=== PATIENT | male | born 1965 | race Caucasian/White ===

== ENCOUNTER → 2019-03-27 | Outpatient (CLI) | payer OTHER ==
[~2019-03-27] VITALS: Ht 175.3 cm; Wt 84.4 kg
[~2019-03-27] MED LIST: MOBIC15 MG PO; SYNTHROID50 MCG PO; TRAZODONE HCL100 MG PO
[2019-03-27 08:55] VITALS: BP 104/52
--- NOTE | 2019-03-27 09:15 | NUR ---
Pain Clinic Assessment: 1. History of Osteoarthritis: History of Rheumatoid Arthritis: 2. Height: 5 ft. 9 in. 175.3 cm. Weight: 186.0 lb. oz. 84.369 kg. Patient's BMI: 27.5 3. Vital Signs: BP: 104/52 Pulse: 70 Resp: 16 Temp: 02 Sat: 100 ECG Mon: 4. Pain Intensity: 6 5. Fall Risk: Dizziness: N Needs help standing or walking: N Fallen in the last 3 months: N Fall risk comments: 6. Patient on Blood Thinner: None 7. History of Hypertension: N 8. Opioid Therapy greater than 6 weeks: N Opiate Contract Signed: 9. Risk Assessment Tool Provided: LOW 10. Functional Assessment Tool: 11. Recreational Drug Use: Never Drug Type: Tobacco Use: Never Smoker Tobacco Type: Amount or Packs/day: How Many Years: Alcohol Use: No Frequency: Quant:
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
== END ==
LOC: PAIN 06:43
DX: M54.5 Low back pain (principal); Z79.899 Other long term (current) drug therapy

== ENCOUNTER → 2019-04-26 | Outpatient (CLI) | payer OTHER ==
[~2019-04-26] VITALS: Ht 175.3 cm; Wt 85.8 kg
[2019-04-26 13:52] VITALS: BP 120/76
--- NOTE | 2019-04-26 13:53 | NUR ---
Pain Clinic Assessment: 1. History of Osteoarthritis: History of Rheumatoid Arthritis: 2. Height: 5 ft. 9 in. 175.3 cm. Weight: 189.2 lb. oz. 85.821 kg. Patient's BMI: 27.9 3. Vital Signs: BP: 120/76 Pulse: 58 Resp: 16 Temp: 02 Sat: 97 ECG Mon: 4. Pain Intensity: 6 5. Fall Risk: Dizziness: N Needs help standing or walking: N Fallen in the last 3 months: N Fall risk comments: 6. Patient on Blood Thinner: None 7. History of Hypertension: N 8. Opioid Therapy greater than 6 weeks: N Opiate Contract Signed: 9. Risk Assessment Tool Provided: LOW 10. Functional Assessment Tool: 11. Recreational Drug Use: Never Drug Type: Tobacco Use: Never Smoker Tobacco Type: Amount or Packs/day: How Many Years: Alcohol Use: No Frequency: Quant:
== END | disposition home or self-care (01) ==
LOC: PAIN 13:23
DX: M54.16 Radiculopathy, lumbar region (principal); G89.29 Other chronic pain; Z79.899 Other long term (current) drug therapy; Z98.890 Other specified postprocedural states

== ENCOUNTER → 2019-06-07 | Outpatient (CLI) | payer OTHER ==
[~2019-06-07] VITALS: Ht 175.3 cm; Wt 84.1 kg
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
[2019-06-07 11:06] VITALS: BP 103/74
--- NOTE | 2019-06-07 11:40 | NUR ---
Pain Clinic Assessment: 1. History of Osteoarthritis: Not Applicable History of Rheumatoid Arthritis: Not Applicable 2. Height: 5 ft. 9 in. 175.3 cm. Weight: 185.4 lb. oz. 84.097 kg. Patient's BMI: 27.4 3. Vital Signs: BP: 103/74 Pulse: 64 Resp: 14 Temp: 02 Sat: 99 ECG Mon: 4. Pain Intensity: 6-7 5. Fall Risk: Dizziness: N Needs help standing or walking: N Fallen in the last 3 months: N Fall risk comments: 6. Patient on Blood Thinner: None 7. History of Hypertension: N 8. Opioid Therapy greater than 6 weeks: N Opiate Contract Signed: 9. Risk Assessment Tool Provided: LOW 10. Functional Assessment Tool: 11. Recreational Drug Use: Never Drug Type: Tobacco Use: Never Smoker Tobacco Type: Amount or Packs/day: How Many Years: Alcohol Use: No Frequency: Quant:
== END ==
LOC: PAIN 06:51
DX: M54.16 Radiculopathy, lumbar region (principal); M43.22 Fusion of spine, cervical region; D64.9 Anemia, unspecified; E07.9 Disorder of thyroid, unspecified; Z79.899 Other long term (current) drug therapy

== ENCOUNTER → 2019-06-19 | Outpatient (CLI) | payer OTHER ==
[~2019-06-19] VITALS: Ht 175.3 cm; Wt 84.4 kg
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
[2019-06-19 11:00] VITALS: BP 105/56
--- NOTE | 2019-06-19 11:08 | NUR ---
Pain Clinic Assessment: 1. History of Osteoarthritis: Not Applicable History of Rheumatoid Arthritis: Not Applicable 2. Height: 5 ft. 9 in. 175.3 cm. Weight: 186.0 lb. oz. 84.369 kg. Patient's BMI: 27.5 3. Vital Signs: BP: 105/56 Pulse: 65 Resp: 14 Temp: 02 Sat: 100 ECG Mon: 4. Pain Intensity: 7 5. Fall Risk: Dizziness: N Needs help standing or walking: N Fallen in the last 3 months: Y Fall risk comments: 6. Patient on Blood Thinner: None 7. History of Hypertension: N 8. Opioid Therapy greater than 6 weeks: N Opiate Contract Signed: 9. Risk Assessment Tool Provided: LOW 10. Functional Assessment Tool: 11. Recreational Drug Use: Never Drug Type: Tobacco Use: Never Smoker Tobacco Type: Amount or Packs/day: How Many Years: Alcohol Use: No Frequency: Quant:
== END | disposition home or self-care (01) ==
LOC: PAIN 06:46
DX: M54.16 Radiculopathy, lumbar region (principal); G89.29 Other chronic pain; E07.9 Disorder of thyroid, unspecified; Z86.2 Personal history of diseases of the blood and blood-forming organs and certain disorders involving the immune mechanism; Z98.890 Other specified postprocedural states; Z79.899 Other long term (current) drug therapy; Z88.0 Allergy status to penicillin

== ENCOUNTER → 2019-08-21 | Outpatient (CLI) | payer OTHER ==
[~2019-08-21] VITALS: Ht 175.3 cm; Wt 83.0 kg
[2019-08-21 11:00] VITALS: BP 109/61
--- NOTE | 2019-08-21 11:07 | NUR ---
Pain Clinic Assessment: 1. History of Osteoarthritis: NECK History of Rheumatoid Arthritis: DENIES 2. Height: 5 ft. 9 in. 175.3 cm. Weight: 183.0 lb. oz. 83.008 kg. Patient's BMI: 27.0 3. Vital Signs: BP: 109/61 Pulse: 64 Resp: 13 Temp: 02 Sat: 97 ECG Mon: 4. Pain Intensity: 7 5. Fall Risk: Dizziness: N Needs help standing or walking: N Fallen in the last 3 months: N Fall risk comments: 6. Patient on Blood Thinner: None 7. History of Hypertension: N 8. Opioid Therapy greater than 6 weeks: N Opiate Contract Signed: 9. Risk Assessment Tool Provided: LOW 10. Functional Assessment Tool: 11. Recreational Drug Use: Never Drug Type: Tobacco Use: Never Smoker Tobacco Type: Amount or Packs/day: How Many Years: Alcohol Use: No Frequency: Quant:
--- NOTE | 2019-09-06 08:25 | HPC ---
[facility] [place] [address] PAIN MANAGEMENT CONSULTATION Name: ERROL DOHERTY Lorenzo Room #: REG SILVERIO Elkins#: [id number] Admission: 08/21/19 Attend Phys: Marlys Latham MD Discharge: Date of : 67 Report #: [id number] THIS REPORT FOR: //name// CC: Jessica Latham DATE OF SERVICE: 08/21/2019 CHIEF COMPLAINT: "Pain improved after the last injection, but I am still having some discomfort and would like to have another injection." HISTORY: The patient is a 54-year-old female who has been seen in the pain clinic because of lumbar radiculopathy. She has gleaned benefits from the previous injection. She has gleaned over 50% improvement. At this point, her pain still is problematic and she rates it as a 7/10. She has pain that continues to radiate down into her leg. Left leg is the area where most of discomfort is noted. She is starting physical therapy again. She continues to have hip pain on both sides. She describes it as a pulling, aching, sharp, heavy discomfort. Pain is exacerbated by sitting, standing as well as walking. She has been using cold compresses. Her medications are beneficial. Sometimes a rocking motion is undertaken to help distract from the discomfort. Pain radiates from the lower portion of her back down into both legs and even involves her feet. ALLERGIES: No known drug allergies. CURRENT MEDICATIONS: Trazodone 100 mg at bedtime, meloxicam 15 mg, Synthroid 50 mcg. PAIN CLINIC ASSESSMENT AND PQRS: 1. 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 She has had surgery in the neck area. She is not being treated for rheumatoid arthritis. 2. Height 5 feet 9 inches, weight 183 pounds, BMI is 27. 3. Vital signs: Blood pressure 109/61, pulse 64, respiratory rate 18, room air saturation is 97%. 4. Pain intensity 7/10. 5. Fall history: The patient has not fallen in the last month. 6. Blood thinner. The patient is not on a blood thinning medication. 7. Hypertension. The patient is not being treated for hypertension. 8. Opioids greater than 6 weeks. The patient is not receiving opioid medications. 9. Risk assessment tool, low for opioid use. 10. Functional assessment tool . 11. Recreational drugs. The patient denies recreational drugs. 12. Tobacco: The patient has never smoked. [facility] [address] [place] [address] PAIN MANAGEMENT CONSULTATION Name: ERROL DOHERTY Room #: REG [facility]#: [id number] Admission: 08/21/19 Attend Phys: Marlys Latham MD Discharge: Date of : 67 Report #: [id number] 13. Alcohol: The patient denies frequent alcohol use. PHYSICAL EXAMINATION: GENERAL: The patient is well-developed, well-nourished white female, appears her stated age. She is alert and oriented x 3. Her affect is appropriate. Speech is fluent. HEENT: Normocephalic, atraumatic. Extraocular eye muscles intact. Sclerae nonicteric. Mucous membranes are moist. NECK: Without adenopathy or JVD. HEART: Regular rate. LUNGS: Clear to auscultation. MUSCULOSKELETAL: Upper extremity muscle strength judged to be 5/5 for the major muscle groups in the upper extremity. The patient without significant scoliosis, kyphosis or lordosis. Lower extremity muscle strength judged to be 5-/5 for the major muscle groups in the lower extremity. The patient has pain and discomfort in lower portion of her back with pain radiating down in the L5-S1 dermatomal distribution with pain in the area of her left and right legs. Left side today more problematic than right. The patient with positive straight leg raises. Has some decreased sensation in the lower portion of the back with sensory changes of numbness, tingling involving the posterior portion in the L5-S1 dermatomal distribution. IMPRESSION: 1. Lumbar radiculopathy with L5-S1 dermatomal distribution with pain primarily on the left, but problematic on the right as well. 2. History of cervical fusion. 3. Thyroid disease. 4. History of anemia. RECOMMENDATIONS: We discussed treatment options with the patient. Risks and benefits of an epidural steroid injection, which could include but are not limited to infection, worsening of pain, increased muscle soreness, nerve damage, bleeding, spinal headache were discussed. We will contact the patient's insurer. Precertification required. The patient has gleaned benefit from the previous surgeries. She has noted greater than 50% improvement. She has pain that has reoccurred. It involves the L5-S1 dermatomal distribution down the left and the right side. Left side is more prominent today. Forward bending caused increased pain with pain that radiates down into her leg. The patient has a positive straight leg raise. She has sensory changes with numbness and tingling. Has some perception of weakness in her legs. This pain radiates down the posterior portion of her legs. The patient has noted improvement in her discomfort. Has resumed physical therapy again. Has had an MRI and has been using nonsteroidal anti-inflammatory medications. She will return to the Pain Clinic after her precertification by the insurance carrier, at which time she will then undergo an epidural steroid injection in the L5-S1 dermatomal distribution. [facility] [address] [place] [address] PAIN MANAGEMENT CONSULTATION Name: ERROL DOHERTY Room #: REG SILVERIO Elkins#: [id number] Admission: 08/21/19 Attend Phys: Marlys Latham MD Discharge: Date of : 67 Report #: [id number] We would like to thank you for letting us participate in her care. We hope she continues to improve. <ELECTRONICALLY SIGNED> By: Marlys Latham MD 09/06/19 0825 [id number] Marlys Latham MD /PMT
== END ==
LOC: PAIN 06:53
DX: M54.16 Radiculopathy, lumbar region (principal); M43.22 Fusion of spine, cervical region; D64.9 Anemia, unspecified

== ENCOUNTER → 2019-08-23 | Outpatient (CLI) | payer OTHER ==
[~2019-08-23] VITALS: Ht 175.3 cm; Wt 84.4 kg
[2019-08-23 08:24] VITALS: BP 126/69
--- NOTE | 2019-08-23 08:26 | NUR ---
Pain Clinic Assessment: 1. History of Osteoarthritis: NECK History of Rheumatoid Arthritis: DENIES 2. Height: 5 ft. 9 in. 175.3 cm. Weight: 186.0 lb. oz. 84.369 kg. Patient's BMI: 27.5 3. Vital Signs: BP: 126/69 Pulse: 63 Resp: 16 Temp: 02 Sat: 99 ECG Mon: 4. Pain Intensity: 6 5. Fall Risk: Dizziness: N Needs help standing or walking: N Fallen in the last 3 months: N Fall risk comments: 6. Patient on Blood Thinner: None 7. History of Hypertension: N 8. Opioid Therapy greater than 6 weeks: N Opiate Contract Signed: 9. Risk Assessment Tool Provided: LOW 10. Functional Assessment Tool: 11. Recreational Drug Use: Never Drug Type: Tobacco Use: Never Smoker Tobacco Type: Amount or Packs/day: How Many Years: Alcohol Use: No Frequency: Quant:
--- NOTE | 2019-09-06 08:25 | HPC ---
[facility] [address] [place] [address] PAIN MANAGEMENT CONSULTATION Name: ERROL DOHERTY Lorenzo Room #: REG [facility] Brittni#: [id number] Admission: 08/23/19 Attend Phys: Marlys Latham MD Discharge: Date of : 67 Report #: [id number] THIS REPORT FOR: //name// CC: Jessica Latham DATE OF SERVICE: 08/23/2019 CHIEF COMPLAINT: Here for injection. HISTORY: The patient is a 54-year-old female who has been seen in the Pain Clinic because of lumbar radiculopathy. She has undergone epidural steroid injections in the past. She found that these were beneficial. She rates her pain today as a 6/10. Has pain that radiates down the lower portion of her back and into both hips. Notes some discomfort down into her legs and down into her feet. The pain is worse with certain movements. She describes it as aching, pulling, sharp and heavy. Sitting, standing, and walking has been problematic. The patient notes some improvement with use of her medications as well as with distraction and with a rocking motion. She has returned today with hopes of undergoing an epidural injection to help decrease her discomfort. ALLERGIES: No known drug allergies. CURRENT MEDICATIONS: Trazodone 100 mg at bedtime, meloxicam 15 mg, and Synthroid 50 mcg. PAIN CLINIC ASSESSMENT/PQRS: 1. The patient has some osteoarthritic changes in her neck. She has had surgical intervention in this area. She is not being treated for rheumatoid arthritis. 2. Pain intensity, 04/08. 3. Fall history: The patient has not fallen in the last 3 months. 4. Blood thinner. The patient is not on a blood thinning medication. 5. Hypertension. The patient is not being treated for hypertension. 6. Opioids greater than 6 weeks. The patient is not on a regular regimen of opioid medication. 6. Risk assessment tool, low for opioid use. 7. Functional assessment tool /. 8. Recreational drugs use: The patient denies. 9. Tobacco: The patient denies. 10. Alcohol. The patient denies frequent use of alcoholic beverages. PHYSICAL EXAMINATION: GENERAL: The patient is a well-developed, well-nourished white female. Appears her stated age. She is alert and oriented x 3. Her affect is appropriate. Speech is fluent. [address] [address] PAIN MANAGEMENT CONSULTATION Name: ERROL DOHERTY Room #: REG [facility] Brittni#: [id number] Admission: 08/23/19 Attend Phys: Marlys Latham MD Discharge: Date of : 67 Report #: [id number] HEENT: Normocephalic, atraumatic. Extraocular eye muscles intact. Sclerae nonicteric. Mucous membranes are moist. NECK: Without adenopathy or JVD. HEART: Regular rate. LUNGS: Clear to auscultation without rales or rhonchi. MUSCULOSKELETAL: Upper extremity muscle strength judged to be 5/5 for the major muscle groups in the upper extremity. Lower extremity muscle strength 5/5 for the major muscle groups in the lower extremity. The patient is having pain that is radiating down into her left leg with numbness, tingling, and weakness. IMPRESSION: 1. Lumbar radiculopathy in the L5-S1 dermatomal distribution involving the left area today with nerve root irritation. 2. Cervical fusion history. 3. Thyroid disease. 4. History of anemia. RECOMMENDATIONS: We discussed treatment options with the patient. Risks and benefits of an epidural steroid injection were discussed. They include but are not limited to infection, worsening of pain, no improvement in pain and the patient elects to proceed. PROCEDURE NOTE: The patient was taken to the procedure area. She was then assisted in getting on the examination table. Her back was sterilely prepped with a Betadine solution. Fluoroscopy using anterior, posterior as well as lateral viewing were implemented. A pillow was placed under the abdomen to bolster and improve positioning. Her back was sterilely prepped with a Betadine solution. At the L5-S1 area, 0.25% bupivacaine was infiltrated in the midline area. This area was anesthetized. A 17-gauge Tuohy with loss of resistance technique was then used to gain access to the epidural space. There was no CSF, heme or paresthesia. Total of 80 mg Depo-Medrol, 40 mg triamcinolone and 2 mL of 0.25% bupivacaine was injected. The patient tolerated the procedure well. There were no complications. A total of 5 seconds fluoroscopy time was used. The patient's pain decreased to 0 at the time of discharge. We would like to thank you for letting us participate in her care. We hope she continues to improve. <ELECTRONICALLY SIGNED> By: Marlys Latham MD 09/06/19 0825 [id number] Marlys Latham MD /nitesh
== END | disposition home or self-care (01) ==
LOC: PAIN 06:58
DX: M54.16 Radiculopathy, lumbar region (principal); G89.29 Other chronic pain; E07.9 Disorder of thyroid, unspecified; Z98.890 Other specified postprocedural states; Z79.899 Other long term (current) drug therapy; Z86.2 Personal history of diseases of the blood and blood-forming organs and certain disorders involving the immune mechanism